=== PATIENT | female | born 1985 | race Two or more races ===

== ENCOUNTER 2016-09-26 13:30 | Outpatient (CLI) | payer MEDICAID ==
[~2016-09-26] VITALS: Ht 162.6 cm; Wt 71.9 kg
[2016-09-26 13:48] VITALS: BP 116/72; PULSE 98; RESP 18; Ht 162.6 cm; Wt 71.9 kg
[2016-09-26] MEDS ORDERED: PRENAT PO (13:51)
--- NOTE | 2016-09-26 20:34 | RADRPT ---
PROCEDURE: US OB biophysical profile. CLINICAL INDICATION: evaluation TECHNIQUE: Multiple sonographic images of the pelvis were obtained. The images were reviewed on a PACS workstation. COMPARISON: No prior studies are available for comparison. FINDINGS: There is a single viable intrauterine gestation. Cardiac activity is present with 142 beats per min cam. There is a vertex presentation. The placenta is anterior. There is no evidence of placental abruption. There is a normal amount of amniotic fluid with an QUEENIE = 14.4 cm. Biophysical profile: movement 2/2 tone 2/2. breathing 2/2 QUEENIE 2/2 Total 01/10 RPTAT: AA . IMPRESSION: Normal biophysical profile. Physician Kyle Date Time Electronically viewed and signed by Physician Kyle on 09/26/2016 20:34 /
--- NOTE | 2016-10-11 22:23 | QN ---
Documentation Comment r/o srom LESLIE QUINTANA MD October 11, 2016 22:23
--- NOTE | 2016-10-18 20:43 | QN ---
Documentation Comment suspected ruptured membrane LESLIE QUINTANA MD October 18, 2016 20:43
== END 2016-09-26 19:01 | disposition home or self-care (01) ==
LOC: L-D 13:30 → OBT 13:30
PROVIDERS: ATTEND Obstetrics & Gynecology
DX: O26.90 Pregnancy related conditions, unspecified, unspecified trimester (principal); Z3A.00 Weeks of gestation of pregnancy not specified
CPT/HCPCS: 76818; 84112; Z7500; G0463

== ENCOUNTER 2016-09-29 11:46 | Inpatient (IN) | payer MEDICAID ==
[~2016-09-29] VITALS: Ht 162.6 cm; Wt 71.7 kg
[~2016-09-29 11:46] MED LIST: PRENAT PO
[2016-09-29 12:08] VITALS: Ht 162.6 cm; Wt 71.7 kg
[2016-09-29 12:09] VITALS: BP 118/64; PULSE 100
[2016-09-29] MEDS ORDERED: ACET325T45 PO (12:10)
[2016-09-29 13:22] LABS: ADD SCAN DIFF NO; BASOPHILS % 0.2 % (0.0-2.0); EOSINOPHILS # 0.1 10^3/ul (0.0-0.5); EOSINOPHILS % 0.4 % (0.0-7.0); HEMATOCRIT 33.7 % (37.0-47.0); HEMOGLOBIN 11.2 g/dl (12.0-16.0); LYMPHOCYTES # 2.2 10^3/ul (0.8-2.9); LYMPHOCYTES % 18.1 % (15.0-51.0); MEAN CORPUSCULAR HEMOGLOBIN 30.4 pg (29.0-33.0); MEAN CORPUSCULAR HGB CONC 33.2 g/dl (32.0-37.0); MEAN CORPUSCULAR VOLUME 91.3 fl (82.0-101.0); MEAN PLATELET VOLUME 9.5 fl (7.4-10.4); MONOCYTES % 7.8 % (0.0-11.0); NEUTROPHIL # 8.9 10^3/ul (1.6-7.5); NEUTROPHILS % 72.2 % (39.0-77.0); PLATELET COUNT 220 10^3/UL (140-415); RED BLOOD COUNT 3.69 10^6/ul (4.20-5.40); RED CELL DISTRIBUTION WIDTH 13.2 % (11.5-14.5); WHITE BLOOD COUNT 12.4 10^3/ul (4.8-10.8)
[2016-09-29 13:39] LABS: ADD UMIC YES; URINE BILIRUBIN (Dip) NEGATIVE (NEGATIVE); URINE BLOOD (Dip) 2+ (NEGATIVE); URINE COLOR YELLOW (YELLOW); URINE GLUCOSE (Dip) NEGATIVE (NEGATIVE); URINE KETONES (Dip) TRACE (NEGATIVE); URINE LEUKOCYTE ESTERASE (Dip) 1+ (NEGATIVE); URINE NITRITE (Dip) NEGATIVE (NEGATIVE); URINE TOTAL PROTEIN (Dip) 1+ (NEGATIVE); URINE UROBILINOGEN (Dip) 1.0 E.U./dL (0.1-1.0)
[2016-09-29 13:52] LABS: BACTERIA,URINE MANY
[2016-09-29] MEDS ORDERED: CEFTRIAXONE 1 GM/50 ML (PMX) 50 ML IVPB ONE (14:30)
[2016-09-29] MEDS ORDERED: LACTATED RINGER'S 1,000 ML IV SCH (15:41)
[2016-09-29] MEDS ORDERED: LACTATED RINGER'S 1,000 ML IV PRN (15:41)
--- NOTE | 2016-09-29 15:51 | RADRPT ---
PROCEDURE: US OB biophysical profile. CLINICAL INDICATION: decreased movements, PTL TECHNIQUE: Multiple sonographic images of the pelvis were obtained. The images were reviewed on a PACS workstation. COMPARISON: No prior studies are available for comparison. FINDINGS: There is a single viable intrauterine gestation. Cardiac activity is present with 130 beats per min [place]. There is a vertex presentation. The placenta is anterior. There is no evidence of placental abruption. There is a normal amount of amniotic fluid with an QUEENIE = 18.0 cm. Biophysical profile: movement 2/2 tone 2/2. breathing 2/2 QUEENIE 2/2 Total 01/10 RPTAT: AA . IMPRESSION: Normal biophysical profile. . .Jose Ramon MD, Date Time Electronically viewed and signed by .Jose Ramon MD, MD on 09/29/2016 15:51 .S/
--- NOTE | 2016-09-29 15:54 | RADRPT ---
PROCEDURE: US OB. CLINICAL INDICATION: Size and dates , PTL TECHNIQUE: Multiple sonographic images of the pelvis and gravid uterus were obtained. The images were reviewed on a PACS workstation. COMPARISON: 09/26/2016 FINDINGS: There is a single viable intrauterine gestation. Cardiac activity is present with 142 beats per min cam. There is a vertex presentation. The placenta is anterior. There is no evidence for an abruption or placenta previa. There is a normal amount of amniotic fluid with an QUEENIE = 18 cm. Measurements were made in order to determine age. The results are as follows: BPD =9.1 cm HC =32.5 cm AC =32.9 cm FL =7.1 cm Estimated gestational age of approximately 36 weeks and 6 days based on ultrasound measurements. Clinical age: 35 weeks and 2 days. The estimated date of delivery is 10/21/2016, based on ultrasound measurements. The EFW = 3023 g, 86%, based on LMP age. RPTAT: AA IMPRESSION: Single viable intrauterine gestation of approximately 36 weeks and 6 days based on ultrasound measu rements. .Jose Ramon MD, Date Time Electronically viewed and signed by .Jose Ramon MD, on 09/29/2016 15:54 .S/
[2016-09-29] MEDS ORDERED: MISOPROSTOL 200 MCG TAB PR PRN (16:00)
[2016-09-29] MEDS ORDERED: OXYTOCIN 30 UNITS/LR 500 ML IV SCH ×2 (16:00)
[2016-09-29] MEDS ORDERED: BUTORPHANOL 2 MG INJ IV PRN (16:00)
[2016-09-29] MEDS ORDERED: IBUPROFEN 600 MG TAB PO PRN (16:00)
[2016-09-29] MEDS ORDERED: OXYTOCIN 30 UNITS/LR 500 ML IV PRN (16:00)
[2016-09-29] MEDS ORDERED: METHYLERGONOVINE 0.2 MG INJ IM PRN (16:00)
[2016-09-29] MEDS ORDERED: LIDOCAINE 1% (MPF) 30 ML INJ INJ PRN (16:00)
[2016-09-29] MEDS ORDERED: CARBOPROST 250 MCG INJ IM PRN (16:00)
[2016-09-29] MEDS ORDERED: TERBUTALINE 1 ML ONE (16:19)
[2016-09-29] MEDS: TERBUTALINE 1 MG/ML INJ SC PRN ×2 (16:25→17:07)
[2016-09-29] MEDS ORDERED: CEFTRIAXONE 1 GM/50 ML (PMX) 50 ML IVPB SCH ×2 (18:00→18:30)
[2016-09-29] MEDS: ACETAMINOPHEN 325 MG TAB PO PRN (18:06)
[2016-09-29] MEDS: SOD CHLORIDE 0.9% 1,000 ML IV SCH (18:07)
--- NOTE | 2016-09-29 18:08 | HP ---
Date/Time of Note Date/Time of Note DATE: 09/29/16 TIME: 18:01 OB - History Hx of Present Free Text/Dictation This is a 31 years old white female 1 para 0 EDC November 01, 2016 admitted to [facility] 35 weeks and 2 day with a chief complaint of having some chills and fever at home patient did not take her temperature at home stating she felt warm after the chief she is being admitted with the tentative diagnosis of possible pyelonephritis and she is being worked up for that diagnosis. Chief Complaint: Chills fever at home suspected pyelonephritis Estimated Due Date: November 01, 2016 : 1 Para: 0 Care: Limited Care Ultrasounds: Normal mid trimester US Obstetrical Complications: None Medical Complications: Genitourinary Past Family/Social History * Past Medical, Surgical, Family and Obstetric Histories reviewed from chart. Rubella: immune RPR/VDRL: Negative GBS Status: Negative HBsAG: Negative OB Admission Exam Vital Signs Vital Signs Vital Signs Date Time Temp Pulse Resp B/P Pulse Ox O2 Delivery O2 Flow Rate FiO2 09/29/16 12:09 98.1 100 118/64 Physical Exam HEENT: WNL Heart: Rhythm Normal Lungs: Clear, Equal Abdomen: WNL Reflexes: Normal Cervical Dilatation: None Station: Ballotable Accelerations: Accelerations Present Decelerations: No Decelerations Varibility: Absent Last 72 hours Lab Results CBC & BMP 09/29/16 12:47 OB Assessment/Plan Reason for admission: IUP - Plan: Other (Workup and treatment for suspected pyelonephritis) LESLIE QUINTANA MD Sep 29, 2016 18:08
[2016-09-29] MEDS: GENTAMICIN 80 MG/NS (PMX) 50 ML IVPB SCH (20:18)
[2016-09-30] MEDS: SOD CHLORIDE 0.9% 1,000 ML IV SCH ×4 (00:52→17:40)
[2016-09-30] MEDS: GENTAMICIN 80 MG/NS (PMX) 50 ML IVPB SCH (04:05)
[2016-09-30 07:17] LABS: ADD SCAN DIFF NO
[2016-09-30 07:20] LABS: BASOPHILS % 0.2 % (0.0-2.0); EOSINOPHILS # 0.1 10^3/ul (0.0-0.5); EOSINOPHILS % 0.4 % (0.0-7.0); HEMATOCRIT 31.5 % (37.0-47.0); HEMOGLOBIN 10.4 g/dl (12.0-16.0); LYMPHOCYTES # 2.5 10^3/ul (0.8-2.9); LYMPHOCYTES % 19.6 % (15.0-51.0); MEAN CORPUSCULAR HEMOGLOBIN 30.3 pg (29.0-33.0); MEAN CORPUSCULAR VOLUME 91.8 fl (82.0-101.0); MEAN PLATELET VOLUME 9.7 fl (7.4-10.4); MONOCYTE # 0.8 10^3/ul (0.3-0.9); NEUTROPHIL # 9.2 10^3/ul (1.6-7.5); NEUTROPHILS % 72.5 % (39.0-77.0); PLATELET COUNT 204 10^3/UL (140-415); RED BLOOD COUNT 3.43 10^6/ul (4.20-5.40); RED CELL DISTRIBUTION WIDTH 13.3 % (11.5-14.5); WHITE BLOOD COUNT 12.7 10^3/ul (4.8-10.8)
[2016-09-30] MEDS: ACETAMINOPHEN 325 MG TAB PO PRN ×3 (07:31→23:52)
[2016-09-30] MEDS ORDERED: MULTIVIT/MIN/FOLATE/IRON/PREN TAB PO SCH (09:00)
[2016-09-30] MEDS ORDERED: GENTAMICIN 120 MG/NS (PMX) 100 ML IVPB SCH ×3 (11:30→22:00)
[2016-09-30] MEDS: PIPER-TAZO 3.375 GM IV (PMX) 100 ML IVPB SCH ×3 (14:39→23:52)
[2016-09-30] MEDS ORDERED: CEFTRIAXONE 1 GM/50 ML (PMX) 50 ML IVPB SCH (16:00)
[2016-10-01] MEDS ORDERED: IBUPROFEN 600 MG TAB PO PRN (00:30)
[2016-10-01] MEDS ORDERED: METHYLERGONOVINE 0.2 MG INJ IM PRN (00:30)
[2016-10-01] MEDS ORDERED: BUTORPHANOL 2 MG INJ IV PRN (00:30)
[2016-10-01] MEDS ORDERED: CARBOPROST 250 MCG INJ IM PRN (00:30)
[2016-10-01] MEDS ORDERED: LIDOCAINE 1% (MPF) 30 ML INJ INJ PRN (00:30)
[2016-10-01] MEDS ORDERED: OXYTOCIN 30 UNITS/LR 500 ML IV SCH ×2 (00:30→11:00)
[2016-10-01] MEDS ORDERED: MISOPROSTOL 200 MCG TAB PR PRN (00:30)
[2016-10-01] MEDS ORDERED: OXYTOCIN 30 UNITS/LR 500 ML IV PRN (00:30)
[2016-10-01] MEDS: BUTORPHANOL 2 MG INJ IV PRN ×2 (01:51→03:49)
[2016-10-01] MEDS: LACTATED RINGER'S 1,000 ML IV PRN ×2 (01:52→03:55)
[2016-10-01 01:53] LABS: INR 0.91; PROTIME 12.3 Sec (12.2-14.2)
[2016-10-01 01:54] LABS: PARTIAL THROMBOPLASTIN TIME 24.8 Sec (25.0-35.0)
[2016-10-01] MEDS ORDERED: FENTAnyl 2MCG/ML-ROPIV 0.2% 100 ML ONE (05:22)
[2016-10-01] MEDS ORDERED: NALOXONE (0.4 MG/ML) INJ IV PRN (06:00)
[2016-10-01] MEDS ORDERED: HYDROmorphONE 1 MG/ML SYG IV PRN ×2 (06:00)
[2016-10-01] MEDS ORDERED: ONDANSETRON 4 MG INJ IV PRN ×2 (06:00→14:30)
[2016-10-01] MEDS ORDERED: DIPHENHYDRAMINE 50 MG INJ IV PRN (06:00)
[2016-10-01] MEDS ORDERED: FENTAnyl 2MCG/ML-ROPIV 0.2% 100 ML BAG EPI SCH (06:00)
[2016-10-01] MEDS: AMPICILLIN 2 GM/NS (PMX) 100 ML IVPB SCH ×2 (06:26→12:53)
[2016-10-01] MEDS: ACETAMINOPHEN 325 MG TAB PO PRN ×2 (06:33→12:21)
[2016-10-01] MEDS ORDERED: GENTAMICIN 120 MG/NS (PMX) 100 ML IVPB SCH ×2 (09:00→14:00)
--- NOTE | 2016-10-01 11:10 | QN ---
Documentation Comment This is a 31 years old white female 1 para 0 with questionable EDC of October 17 on her record and November 01 by her LMP which originally admitted to the hospital due to the chills and fever suspected pyelonephritis at first she was treated with Rocephin then followed with ampicillin and gentamicin, she went into active labor in the antepartum unit and transferred to labor and delivery room . Patient spiked temperature to 101.3 preliminary blood and urine culture are negative, final result not available yet LESLIE QUINTANA MD Oct 01, 2016 11:09
--- NOTE | 2016-10-01 11:15 | LDN ---
Date/Time of Note Date/Time of Note DATE: 10/01/16 TIME: 11:10 Delivery Summary Normal spontaneous vaginal delivery of a baby boy from OA position shoulders delivered without any difficulties rest of the baby's body follow cord was clamped after stopped pulsation placenta spontaneous expulsion inspected complete culture and sensitivity for aerobic and anaerobic from placenta also placenta sent to the pathology Placenta Delivered: Spontaneously Meconium: none Episiotomy: No Perineal laceration: 1 Laceration repair: First-degree perineal laceration and right periurethral laceration both with with 3-0 chromic catgut and 4-0 chromic catgut Anesthesia type: Epidural Sponge & Needle done & correct: Yes All needle counts correct: Yes Any foreign bodies felt in the: No Problems: Delivery Information Sex Sex: male Apgars 1 Minute: 8 5 Minute: 9 Suctioning Nose & mouth suctioned at beatrice: Yes Delee suction performed: No Umbilical Cord Umbilical cord with: 3 Vessels Cord Blood was obtained: Yes LESLIE QUINTANA MD Oct 01, 2016 11:15
[2016-10-01 14:30] VITALS: BP 96/57; PULSE 99; RESP 16
[2016-10-01] MEDS ORDERED: DIBUCAINE 1% 30 GM OINT PR PRN (14:30)
[2016-10-01] MEDS ORDERED: ACETAMINOPHEN 325 MG TAB PO PRN (14:30)
[2016-10-01] MEDS ORDERED: LANOLIN 7 GM TUBE TOP PRN (14:30)
[2016-10-01] MEDS ORDERED: WITCH HAZEL/GLYCERIN PAD PR PRN (14:30)
[2016-10-01] MEDS ORDERED: OXYCODONE/ASPIRIN (4.88/325) TAB PO PRN ×2 (14:30)
[2016-10-01] MEDS ORDERED: BENZOCAINE 20% 56 ML SPRAY TOP PRN (14:30)
[2016-10-01] MEDS ORDERED: IMIPENEM/CILASTATIN 1,000 MG in SOD CHLORIDE 0.9% 250 ML IVPB SCH (14:30)
[2016-10-01] MEDS ORDERED: ACETAMINOPHEN/CODEINE #3 TAB PO PRN ×2 (14:30)
[2016-10-01] MEDS: OXYTOCIN 30 UNITS/LR 500 ML IV SCH ×2 (14:57→21:12)
[2016-10-01 15:02] LABS: ADD SCAN DIFF NO
[2016-10-01 15:14] LABS: HEMATOCRIT 30.4 % (37.0-47.0); HEMOGLOBIN 10.3 g/dl (12.0-16.0); MEAN CORPUSCULAR HEMOGLOBIN 30.9 pg (29.0-33.0); MEAN CORPUSCULAR HGB CONC 33.9 g/dl (32.0-37.0); MEAN CORPUSCULAR VOLUME 91.3 fl (82.0-101.0); MEAN PLATELET VOLUME 9.9 fl (7.4-10.4); PLATELET COUNT 198 10^3/UL (140-415); RED BLOOD COUNT 3.33 10^6/ul (4.20-5.40); RED CELL DISTRIBUTION WIDTH 13.4 % (11.5-14.5); WHITE BLOOD COUNT 14.4 10^3/ul (4.8-10.8)
--- NOTE | 2016-10-01 16:07 | RADRPT ---
PROCEDURE: Retroperitoneal ultrasound. CLINICAL INDICATION: Fever, flank pain TECHNIQUE: Cabrales scale and color doppler ultrasound images of the retroperitoneum, kidneys, urinary bladder COMPARISON: No prior studies are available for comparison. FINDINGS: Right kidney 11.9 cm in length. Right renal cortical thickness is preserved. Left kidney 11.6 cm in length. Left renal cortical thickness is preserved. Normal echogenicity. No hydronephrosis. No renal calculi. No focal lesions. Bladder: No focal lesions. IMPRESSION: Normal examination of the kidneys and urinary bladder. RPTAT: AADD .Gilles Day MD, MD Date Time Electronically viewed and signed by .Gilles Day MD, on 10/01/2016 16:07 .B/
[2016-10-01] MEDS: IBUPROFEN 600 MG TAB PO SCH ×2 (17:09→23:23)
[2016-10-01] MEDS: IMIPENEM/CILASTATIN 1,000 MG in SOD CHLORIDE 0.9% 250 ML IVPB SCH (17:25)
--- NOTE | 2016-10-01 19:21 | CONS ---
Date/Time of Note Date/Time of Note DATE: 10/01/16 TIME: 19:01 Assessment/Plan Assessment/Plan Chief Complaint/Hosp Course ID PROGRESS NOTE ABX DAY #3 =>Primaxin #1 s/p Ceftriaxone + Gent IV s/p Amoxicillin 24H INTERVAL SUMMARY * I presented to the new mother's room 302 where she is found holding her son with Father present. She is a beautiful, healthy appearing 31 yo F 10/01 -> Normal spontaneous vaginal delivery of a baby boy. She currently denies fevers, chills, N/V/D, flank pain/ABD pain. She did have some dysuria today after delivery, not sure if due to repair of vaginal tissue vs urethral source, denies current dysuria. * She was admitted on 09/29 from home w/fevers, tachycardia, UTI per UA => presumptive acute pyelonephritis -> referred to Dr. Del Rosario ID consult today post delivery for ABX recommendations with fevers persisting on Ceftriaxone + Gent. Dr. Del Rosario recommended start Primaxin and DC Ceftriaxone/Gent during phone call discussion with Dr. Singh earlier today this morning about 1-hr . * Urine cx was unremarkable growing normal vaginal eden contaminant. URINE CULTURE Final LACTOBACILLUS SPECIES >100,000 CFU/ml * Renal/Bladder US 10/01 showed no abnormalities, basically unremarkable. Normal examination of the kidneys and urinary bladder. * Placenta cx sent by Dr. iSngh today and pending. PHYSICAL EXAMINATION: GENERAL: 32 yo F, HEENT: Unremarkable NECK: Supple, trachea midline. CHEST: Rise symmetrical, HEART: Pulse RRR ABDOMEN: Soft, distended post , : Post vag discharge, wearing pads EXTREMITIES: Warm, dry, no edema ID ASSESSMENT 31 yo F presented 09/29 w/fevers/chills at home on 09/29 admit with: 1. day #10/01, 1 para 1 -> Normal spontaneous vaginal delivery of a baby boy with: 2. SIRS vs sepsis w/fevers, tachycardia HR 100, Leukocytosis WBC 14.3 -> DDx UTI vs Chorioamnionitis 3. Urine Cx = growing normal vaginal eden contaminant. URINE CULTURE Final LACTOBACILLUS SPECIES >100,000 CFU/ml 4. Normal Ultrasound 10/01 examination of the kidneys and urinary bladder. INVASIVES: PIV, ABX ALLERGY: KNDA CURRENT ABX: #3 =>Primaxin #1 s/p Ceftriaxone + Gent IV ID RECOMMENDATIONS 1. Overall she is improving on current ABX -- await result of placenta cultures 2. Continue Primaxin *Thank you, further recs per Dr. Del Rosario's note dictation which is pending medical officer. . Problems: Consultation Date/Type/Reason Admit Date/Time Sep 29, 2016 at 13:15 Initial Consult Date Exam/Review of Systems Vital Signs Vitals Vital Signs Date Time Temp Pulse Resp B/P Pulse Ox O2 Delivery O2 Flow Rate FiO2 10/01/16 14:30 100.7 99 16 96/57 Room Air Intake and Output 09/30/16 09/30/16 10/01/16 15:00 23:00 07:00 Intake Total 1200 ml 2055 ml 1225 ml Output Total 900 ml 1000 ml Balance 300 ml 1055 ml 1225 ml Results Result Diagram: 10/01/16 1445 Results 24 hrs Laboratory Tests Test 09/30/16 23:15 10/01/16 01:27 10/01/16 14:45 Membranes Rupture POSITIVE H Prothrombin Time 12.3 Prothrombin Time Ratio 1.0 INR International Normalized Ratio 0.91 Activated Partial Thromboplast Time 24.8 L Rapid Plasma Reagin NONREACTIVE Hepatitis B Surface Antigen NEGATIVE White Blood Count 14.4 H Red Blood Count 3.33 L Hemoglobin 10.3 L Hematocrit 30.4 L Mean Corpuscular Volume 91.3 Mean Corpuscular Hemoglobin 30.9 Mean Corpuscular Hemoglobin Concent 33.9 Red Cell Distribution Width 13.4 Platelet Count 198 Mean Platelet Volume 9.9 Neutrophils % Lymphocytes % Monocytes % Neutrophils # Lymphocytes # Monocytes # Medications Medications Current Medications Oxytocin/Lactated Ringer's 500 ml @ 125 mls/hr Q4H IV Last administered on 14:57; Admin Dose 125 MLS/HR; Start 10/01/16 at 14:22; Stop 10/01/16 at 22:21 Ibuprofen (Motrin) 600 mg Q6 PO Last administered on 10/01/16 17:09; Admin Dose 600 MG; Start 10/01/16 at 18:00 Acetaminophen (Tylenol Tab) 650 mg Q4H PRN PO PAIN LEVEL 1-5 Last administered on 10/01/16 18:18; Admin Dose 650 MG; Start 10/01/16 at 14:30 Acetaminophen/ Codeine Phosphate (Tylenol No.3) 1 tab Q4H PRN PO PAIN LEVEL 1-5 ; Start 10/01/16 at 14:30 Acetaminophen/ Codeine Phosphate (Tylenol No.3) 2 tab Q4H PRN PO PAIN LEVEL 6- 10; Start 10/01/16 at 14:30 Oxycodone/Aspirin (Percodan) 1 tab Q3H PRN PO PAIN LEVEL 1-5; Start 10/01/16 at 14:30 Oxycodone/Aspirin (Percodan) 2 tab Q3H PRN PO PAIN LEVEL 6-10; Start 10/01/16 at 14:30 Ondansetron HCl (Zofran Inj) 4 mg Q6H PRN IV NAUSEA AND/OR VOMITING; Start at 14:30 Senna/Docusate Sodium (Senokot-S) 1 tab BID PO ; Start 10/01/16 at 21:00 Measles/Mumps/ Rubella Vaccine Live 0.5 ml 0.5 ml ONCE ONCE SC* ; Start 10/03/16 at 09:00; Stop 10/03/16 at 09:01 Imipenem/ Cilastatin Sodium/ Sodium Chloride (Primaxin/NS) 250 ml @ 166.667 mls /hr Q6 IVPB Last administered on 10/01/16t 17:25; Admin Dose 166.667 MLS/HR; Start 10/01/16 at 17:00 LUICO CRUZ NP Oct 01, 2016 19:11
[2016-10-01 19:40] VITALS: BP 92/54; PULSE 100; RESP 20
[2016-10-01] MEDS: SENNA/DOCUSATE NA (8.6MG/50MG) TAB PO SCH (21:13)
[2016-10-01 22:07] LABS: LYMPHOCYTES # 2.4 10^3/ul (0.8-2.9); MONOCYTE # 0.7 10^3/ul (0.3-0.9); NEUTROPHIL # 9.9 10^3/ul (1.6-7.5)
--- NOTE | 2016-10-01 23:54 | CONS ---
DATE OF ADMISSION: 09/29/2016 DATE OF CONSULTATION: 10/01/2016 TYPE OF CONSULTATION: Infectious disease. REASON FOR CONSULTATION: Antibiotic management. HISTORY OF PRESENT ILLNESS: Cyndy Gr is a very pleasant 31-year-old female, 1, who was admitted 09/29/2016 to [facility] with 35-week . She had chief complaints of chi lls and fever at home. She was admitted with a diagnosis of pyelonephritis and was worked up for th at diagnosis. She had chills and fever at home. HOSPITAL COURSE: The patient underwent labor and delivery on the morning. She had normal spon taneous vaginal delivery from OA position. Baby is healthy at this point. There was pulsation of p lacenta, spontaneous expulsion. Complete culture and sensitivities were done on the placenta and it was sent for evaluation. Blood cultures so far are negative. Urine culture was positive for lacto bacillus. A renal ultrasound was done, which showed normal examination of the kidneys and the urina ry bladder. White count on admission was 12.4. Today it is 14.4, H and H 10.3 and 30.4, platelet c ount 198,000. Urine: 1+ leukocyte esterase, 25 to 50 white cells per high powered field. The hao ent was started on imipenem 500 mg q.8h., gentamicin, and ampicillin, so she was started on 3 differ ent antibiotics. PAST MEDICAL HISTORY: Operations as outlined. FAMILY HISTORY: Noncontributory. SOCIAL HISTORY: As noted, she does not smoke, drink, or abuse drugs. ALLERGIES: NONE TO PENICILLIN, SULFA, OR FOODS. MEDICATIONS: GENERAL: Per chart. REVIEW OF SYSTEMS: As per HPI. PHYSICAL EXAMINATION: GENERAL: The patient is a well-developed, well-nourished female who is alert, responsive, in no acu te distress. VITAL SIGNS: Stable. She is afebrile. SKIN: Without generalized rash. HEENT: Within normal limits. NECK: Supple. LYMPH NODES: None palpable. LUNGS: Clear to P and A. HEART: Without murmur or gallop. ABDOMEN: Soft, nontender without organosplenomegaly or masses. EXTREMITIES: Without cyanosis, clubbing, or edema. RECTAL AND GENITAL: Deferred. NEUROLOGIC: No focal neurological abnormalities. IMPRESSION AND PLAN: The patient may have had an infected placenta. She may have had pyelonephriti s, but at this point, the baby is healthy, mother is healthy, and she is on triple antibiotics with ampicillin, imipenem, and gentamicin. Will await the culture reports. I will dictate my findings t o Dr. Quintana. Dictated By: JS CLAIRE MD, JD/NTS Conf#: [id number] DID#: [id number] CC: LESLIE QUINTANA MD;*EndCC*
[2016-10-02] MEDS: IMIPENEM/CILASTATIN 1,000 MG in SOD CHLORIDE 0.9% 250 ML IVPB SCH ×4 (00:23→17:22)
[2016-10-02 03:30] VITALS: BP 89/53; PULSE 81
[2016-10-02] MEDS: IBUPROFEN 600 MG TAB PO SCH ×4 (05:29→23:20)
[2016-10-02 07:30] VITALS: BP 93/53; PULSE 84; RESP 19
[2016-10-02 07:38] LABS: ADD SCAN DIFF NO
[2016-10-02 07:41] LABS: HEMATOCRIT 30.4 % (37.0-47.0); HEMOGLOBIN 10.2 g/dl (12.0-16.0); MEAN CORPUSCULAR HEMOGLOBIN 30.4 pg (29.0-33.0); MEAN CORPUSCULAR HGB CONC 33.6 g/dl (32.0-37.0); MEAN CORPUSCULAR VOLUME 90.7 fl (82.0-101.0); MEAN PLATELET VOLUME 9.8 fl (7.4-10.4); PLATELET COUNT 185 10^3/UL (140-415); RED BLOOD COUNT 3.35 10^6/ul (4.20-5.40); RED CELL DISTRIBUTION WIDTH 13.4 % (11.5-14.5); WHITE BLOOD COUNT 9.6 10^3/ul (4.8-10.8)
[2016-10-02] MEDS: SENNA/DOCUSATE NA (8.6MG/50MG) TAB PO SCH ×2 (08:45→20:59)
[2016-10-02] MEDS: LACTATED RINGER'S 1,000 ML IV SCH ×2 (08:51→17:00)
[2016-10-02 10:36] LABS: EOSINOPHILS # 0.2 10^3/ul (0.0-0.5); LYMPHOCYTES # 2.3 10^3/ul (0.8-2.9); MYELOCYTES # 0.1; PLATELET ESTIMATE PLT APPEAR ADEQUATE
--- NOTE | 2016-10-02 12:59 | CONS ---
Date/Time of Note Date/Time of Note DATE: 10/02/16 TIME: 12:55 Assessment/Plan Assessment/Plan Chief Complaint/Hosp Course ID PROGRESS NOTE ABX DAY #4 =>Primaxin #2 s/p Ceftriaxone + Gent IV-> DC 10/01 s/p Amoxicillin 24H INTERVAL SUMMARY * Much improved on Primaxin -- afebrile, WBC normalized, no evidence of sepsis. * Maternal and Placenta cultures both => TISSUE (BIOPSY) CULTURE Preliminary No growth after 1 day * Urine cx was unremarkable growing normal vaginal eden contaminant. URINE CULTURE Final LACTOBACILLUS SPECIES >100,000 CFU/ml * Renal/Bladder US 10/01 showed no abnormalities, basically unremarkable. Normal examination of the kidneys and urinary bladder. * Placenta cx sent by Dr. Singh today and pending. PHYSICAL EXAMINATION: GENERAL: 32 yo F, HEENT: Unremarkable NECK: Supple, trachea midline. CHEST: Rise symmetrical, HEART: Pulse RRR ABDOMEN: Soft, distended post , : Post vag discharge, wearing pads EXTREMITIES: Warm, dry, no edema ID ASSESSMENT 31 yo F presented 09/29 w/fevers/chills at home on 09/29 admit with: 1. day #10/01, 1 para 1 -> Normal spontaneous vaginal delivery of a baby boy with: 2. SIRS vs sepsis w/fevers, tachycardia HR 100, Leukocytosis WBC 14.3 -> DDx UTI vs Chorioamnionitis 3. Urine Cx = growing normal vaginal eden contaminant. URINE CULTURE Final LACTOBACILLUS SPECIES >100,000 CFU/ml 4. Normal Ultrasound 10/01 examination of the kidneys and urinary bladder. INVASIVES: PIV, ABX ALLERGY: KNDA CURRENT ABX: ABX DAY #4 =>Primaxin #2 s/p Ceftriaxone + Gent IV ID RECOMMENDATIONS 1. Overall she has improved and back to baseline, fevers, leukocytosis resolved , NO EVIDENCE of current sepsis, BCx & urine (-) -- await result of placenta cultures 2. Anticipate DC home OFF PRIMAXIN if placenta cx are negative. * Above recommendations discussed with the patient who expresses understanding/ agreement/gratitude for ID care. . Problems: Consultation Date/Type/Reason Admit Date/Time Sep 29, 2016 at 13:15 Exam/Review of Systems Vital Signs Vitals Vital Signs Date Time Temp Pulse Resp B/P Pulse Ox O2 Delivery O2 Flow Rate FiO2 4/30/17 07:30 97.8 84 19 93/53 Room Air Intake and Output 10/01/16 10/01/16 10/02/16 15:00 23:00 07:00 Intake Total 1220 ml 625 ml 875 ml Output Total 1050 ml Balance 170 ml 625 ml 875 ml Results Result Diagram: 10/02/16 0624 Results 24 hrs Laboratory Tests Test 10/01/16 14:45 10/02/16 06:24 White Blood Count 14.4 H 9.6 # Red Blood Count 3.33 L 3.35 L Hemoglobin 10.3 L 10.2 L Hematocrit 30.4 L 30.4 L Mean Corpuscular Volume 91.3 90.7 Mean Corpuscular Hemoglobin 30.9 30.4 Mean Corpuscular Hemoglobin Concent 33.9 33.6 Red Cell Distribution Width 13.4 13.4 Platelet Count 198 185 Mean Platelet Volume 9.9 9.8 Neutrophils % 69.0 63.0 Band Neutrophils % 4.0 Lymphocytes % 17.0 24.0 Reactive Lymphocytes % 5.0 Monocytes % 5.0 10.0 Neutrophils # 9.9 H 6.0 Lymphocytes # 2.4 2.3 Monocytes # 0.7 1.0 H Eosinophils % 2.0 Myelocytes % 1.0 H Eosinophils # 0.2 Myelocytes # 0.1 Platelet Estimate PLT APPEAR ADEQUATE Medications Medications Current Medications Ibuprofen (Motrin) 600 mg Q6 PO Last administered on 10/02/16 11:35; Admin Dose 600 MG; Start 10/01/16 at 18:00 Acetaminophen (Tylenol Tab) 650 mg Q4H PRN PO PAIN LEVEL 1-5 Last administered on 10/01/16 18:18; Admin Dose 650 MG; Start 10/01/16 at 14:30 Acetaminophen/ Codeine Phosphate (Tylenol No.3) 1 tab Q4H PRN PO PAIN LEVEL 1-5 ; Start 10/01/16 at 14:30 Acetaminophen/ Codeine Phosphate (Tylenol No.3) 2 tab Q4H PRN PO PAIN LEVEL 6- 10; Start 10/01/16 at 14:30 Oxycodone/Aspirin (Percodan) 1 tab Q3H PRN PO PAIN LEVEL 1-5; Start 10/01/16 at 14:30 Oxycodone/Aspirin (Percodan) 2 tab Q3H PRN PO PAIN LEVEL 6-10; Start 10/01/16 at 14:30 Ondansetron HCl (Zofran Inj) 4 mg Q6H PRN IV NAUSEA AND/OR VOMITING; Start at 14:30 Senna/Docusate Sodium (Senokot-S) 1 tab BID PO Last administered on 10/02/16 08:45; Admin Dose 1 TAB; Start 10/01/16 at 21:00 Measles/Mumps/ Rubella Vaccine Live 0.5 ml 0.5 ml ONCE ONCE SC* ; Start 10/03/16 at 09:00; Stop 10/03/16 at 09:01 Imipenem/ Cilastatin Sodium 1000 mg/Sodium Chloride 250 ml @ 166.667 mls/hr Q6 IVPB Last administered on 10/02/16 11:35; Admin Dose 166.667 MLS/HR; Start at 17:00 Lactated Ringer's (Lr) 1,000 ml @ 125 mls/hr Q8H IV Last administered on 08:51; Admin Dose 125 MLS/HR; Start 10/02/16 at 09:00 LUCIO CRUZ NP Oct 02, 2016 12:59
--- NOTE | 2016-10-02 15:45 | PN ---
Date/Time of Note Date/Time of Note DATE: 10/02/16 TIME: 15:41 OB Subjective Subjective Subjective Post normal vaginal delivery day 1 Afebrile as of midnight last night no complaint of flank pain no sign of urinary frequency abdomen soft uterus firm suprapubic area nontender lochia moderate' urine culture was positive for lactobacillus over 100,000 patient currently on Primaxin responded well to the treatment white WBC down from 14,000 -9600, culture result from the placenta and membranes not available extremity normal. Laboratory Tests Test 10/02/16 06:24 White Blood Count 9.610^3/ul Red Blood Count 3.3510^6/ul Hemoglobin 10.2g/dl Hematocrit 30.4% Mean Corpuscular Volume 90.7fl Mean Corpuscular Hemoglobin 30.4pg Mean Corpuscular Hemoglobin Concent 33.6g/dl Red Cell Distribution Width 13.4% Platelet Count 52934^3/UL Mean Platelet Volume 9.8fl Neutrophils % 63.0% Lymphocytes % 24.0% Monocytes % 10.0% Eosinophils % 2.0% Myelocytes % 1.0% Neutrophils # 6.010^3/ul Lymphocytes # 2.310^3/ul Monocytes # 1.010^3/ul Eosinophils # 0.210^3/ul Myelocytes # 0.1 Platelet Estimate PLT APPEAR ADEQUATE Current Medications Medications (Trade) Dose Ordered Sig/[place] Route PRN Reason Start Time Stop Time Status Last Admin Dose Admin Ceftriaxone Sodium 50 ml @ 100 mls/hr ONCE ONCE IVPB 09/29/16 14:30 09/29/16 14:59 DC 09/29/16 16:12 Lactated Ringer's (Lr) 1,000 ml @ 125 mls/hr Q8H IV 09/29/16 15:41 09/29/16 17:05 DC 09/29/16 16:29 Butorphanol Tartrate (Stadol) 2 mg Q2H PRN IV PAIN 09/29/16 16:00 09/29/16 17:05 DC Lidocaine 30 ml 30 ml ONCE PRN INJ EPISIOTOMY/TEARING 09/29/16 16:00 09/29/16 17:05 DC Oxytocin/Lactated Ringer's 500 ml @ 125 mls/hr ONCE -MAY REPEAT X1 IV 09/29/16 16:00 09/29/16 17:05 DC Oxytocin/Lactated Ringer's 500 ml @ 125 mls/hr ONCE IV 09/29/16 16:00 09/29/16 17:06 DC Ibuprofen 600 mg 600 mg ONCE PRN PO Mild Pain (Pain Score 1-3) 09/29/16 16:00 09/29/16 17:06 DC Lactated Ringer's 1,000 ml @ 2,000 mls/hr Q30M PRN IV PRE-EPIDURAL BOLUS 09/29/16 15:41 09/29/16 17:06 DC Oxytocin/Lactated Ringer's 500 ml @ 0 mls/hr ONCE PRN IV For Hemorrhage Management 09/29/16 16:00 09/29/16 17:06 DC Methylergonovine Maleate (Methergine) 0.2 mg ONCE PRN IM VAGINAL BLEEDING 09/29/16 16:00 09/29/16 17:06 DC Carboprost Tromethamine (Hemabate) 250 mcg ONCE PRN IM VAGINAL BLEEDING 09/29/16 16:00 09/29/16 17:06 DC Misoprostol (Cytotec) 1,000 mcg ONCE PRN AK VAGINAL BLEEDING 09/29/16 16:00 09/29/16 17:06 DC Terbutaline Sulfate 0.25 mg 0.25 mg PRN PRN SC PAIN 09/29/16 16:30 09/29/16 17:47 DC 09/29/16 17:07 Terbutaline Sulfate 1 ml @ ud STK-MED ONCE .ROUTE 09/29/16 16:19 09/29/16 16:20 DC Sodium Chloride (NS) 1,000 ml @ 125 mls/hr Q8H IV 09/29/16 16:58 10/01/16 01:43 DC 09/30/16 17:40 Prenat Multivit/ Field Nurse Case Manager/Iron/Folic Ac ( S) 1 tab DAILY PO 09/30/16 09:00 10/01/16 01:43 DC 09/30/16 08:44 Acetaminophen 650 mg 650 mg Q4H PRN PO PAIN AND OR ELEVATED TEMP 09/29/16 17:00 10/01/16 01:43 DC 09/30/16 23:52 Gentamicin Sulfate 50 ml @ 104 mls/hr Q8H IVPB 09/29/16 19:30 09/30/16 10:23 DC 09/30/16 04:05 Ceftriaxone Sodium 50 ml @ 100 mls/hr Q24H IVPB 09/29/16 18:00 09/29/16 18:04 DC Ceftriaxone Sodium 50 ml @ 100 mls/hr Q24H IVPB 09/29/16 18:30 09/29/16 18:30 DC Ceftriaxone Sodium 50 ml @ 100 mls/hr Q24H IVPB 09/30/16 16:00 09/30/16 16:00 DC Gentamicin Sulfate 100 ml @ 200 mls/hr Q24H IVPB 09/30/16 11:30 09/30/16 11:30 DC Gentamicin Sulfate 100 ml @ 200 mls/hr Q8H IVPB 09/30/16 12:30 09/30/16 21:16 DC 09/30/16 11:25 Piperacillin Sod/ Tazobactam Sod 100 ml @ 200 mls/hr Q6 IVPB 09/30/16 14:00 10/01/16 01:43 DC 09/30/16 23:52 Gentamicin Sulfate (Gentamicin) 100 ml @ 200 mls/hr Q8H IVPB 09/30/16 22:00 10/01/16 01:43 DC 09/30/16 22:29 Butorphanol Tartrate (Stadol) 1 mg Q2H PRN IV PAIN 10/01/16 00:30 10/01/16 14:25 DC Butorphanol Tartrate (Stadol) 2 mg Q2H PRN IV PAIN 10/01/16 00:30 10/01/16 14:25 DC 10/01/16 03:49 Lidocaine 30 ml 30 ml ONCE PRN INJ EPISIOTOMY/TEARING 10/01/16 00:30 10/01/16 14:25 DC Oxytocin/Lactated Ringer's 500 ml @ 125 mls/hr ONCE -MAY REPEAT X1 IV 10/01/16 00:30 10/01/16 14:25 DC 10/01/16 10:44 Ibuprofen 600 mg 600 mg ONCE PRN PO Mild Pain (Pain Score 1-3) 10/01/16 00:30 10/01/16 14:25 DC Lactated Ringer's 1,000 ml @ 2,000 mls/hr Q30M PRN IV PRE-EPIDURAL BOLUS 10/01/16 00:30 10/01/16 14:30 DC 10/01/16 03:55 Oxytocin/Lactated Ringer's 500 ml @ 0 mls/hr ONCE PRN IV For Hemorrhage Management 10/01/16 00:30 10/01/16 14:30 DC Methylergonovine Maleate (Methergine) 0.2 mg ONCE PRN IM VAGINAL BLEEDING 10/01/16 00:30 10/01/16 14:30 DC Carboprost Tromethamine (Hemabate) 250 mcg ONCE PRN IM VAGINAL BLEEDING 10/01/16 00:30 10/01/16 14:30 DC Misoprostol 1000 mcg 1,000 mcg ONCE PRN [place] VAGINAL BLEEDING 10/01/16 00:30 10/01/16 14:30 DC Ampicillin (Ampicillin 2 Gm/ NS (Pmx)) 100 ml @ 100 mls/hr Q6 IVPB 10/01/16 06:00 10/01/16 13:16 DC 10/01/16 12:53 Acetaminophen 650 mg 650 mg Q6H PRN PO PAIN AND OR ELEVATED TEMP 10/01/16 02:00 10/01/16 14:25 DC 10/01/16 12:21 Fentanyl/ Ropivacaine 100 ml @ STK-MED ONCE .ROUTE 10/01/16 05:22 10/01/16 05:23 DC Naloxone HCl (Narcan) 0.1 mg Q2M PRN IV FOR RESP RATE 8 OR LESS 10/01/16 06:00 10/01/16 14:30 DC Hydromorphone HCl (Dilaudid) 0.2 mg Q3H PRN IV PAIN LEVEL 1-5 10/01/16 06:00 10/01/16 14:25 DC Hydromorphone HCl (Dilaudid) 0.4 mg Q3H PRN IV PAIN LEVEL 6-10 10/01/16 06:00 10/01/16 14:25 DC Diphenhydramine HCl (Benadryl) 25 mg Q6H PRN IV ITCHING 10/01/16 06:00 10/01/16 14:25 DC Ondansetron HCl (Zofran Inj) 4 mg Q6H PRN IV NAUSEA AND/OR VOMITING 10/01/16 06:00 10/01/16 14:25 DC Fentanyl/ Ropivacaine 100 ml 100 ml EPIDURAL INFUSION EPI 10/01/16 06:00 10/01/16 14:25 DC Gentamicin Sulfate 100 ml @ 200 mls/hr Q24H IVPB 10/01/16 09:00 10/01/16 09:00 DC 10/01/16 08:15 Gentamicin Sulfate 100 ml @ 200 mls/hr Q8 IVPB 10/01/16 14:00 10/01/16 14:00 DC Oxytocin/Lactated Ringer's 500 ml @ 125 mls/hr Q4H IV 10/01/16 11:00 10/01/16 14:25 DC 10/01/16 12:32 Imipenem/ Cilastatin Sodium 1000 mg/Sodium Chloride 250 ml @ 166.667 mls/hr Q6 IVPB 10/01/16 14:30 10/01/16 14:30 DC Oxytocin/Lactated Ringer's 500 ml @ 125 mls/hr Q4H IV 10/01/16 14:22 10/01/16 22:21 DC 10/01/16 21:12 Ibuprofen (Motrin) 600 mg Q6 PO 10/01/16 18:00 10/02/16 11:35 Acetaminophen (Tylenol Tab) 650 mg Q4H PRN PO PAIN LEVEL 1-5 10/01/16 14:30 10/01/16 18:18 Acetaminophen/ Codeine Phosphate (Tylenol No.3) 1 tab Q4H PRN PO PAIN LEVEL 1-5 10/01/16 14:30 Acetaminophen/ Codeine Phosphate (Tylenol No.3) 2 tab Q4H PRN PO PAIN LEVEL 6-10 10/01/16 14:30 Oxycodone/Aspirin (Percodan) 1 tab Q3H PRN PO PAIN LEVEL 1-5 10/01/16 14:30 Oxycodone/Aspirin (Percodan) 2 tab Q3H PRN PO PAIN LEVEL 6-10 10/01/16 14:30 Ondansetron HCl (Zofran Inj) 4 mg Q6H PRN IV NAUSEA AND/OR VOMITING 10/01/16 14:30 Senna/Docusate Sodium (Senokot-S) 1 tab BID PO 10/01/16 21:00 10/02/16 08:45 Witch Deedee/ Glycerin (Tucks Pads) 1 pad BEDSIDE MEDICATION PRN AK HEMORRHOID/EPISIOTMY PAIN 10/01/16 14:30 10/01/16 17:09 Benzocaine (Dermoplast [place]) 1 spray BEDSIDE MEDICATION PRN TOP HEMORRHOID/EPISIOTMY PAIN 10/01/16 14:30 10/01/16 17:09 Dibucaine (Nupercainal) 1 applic BEDSIDE MEDICATION PRN AK HEMORRHOID/EPISIOTMY PAIN 10/01/16 14:30 Lanolin (Ugi-A-Zjsnul) 1 applic BEDSIDE MEDICATION PRN TOP BEDSIDE FOR CATRACHO TO NIPPLES 10/01/16 14:30 10/01/16 17:09 Measles/Mumps/ Rubella Vaccine Live 0.5 ml 0.5 ml ONCE ONCE SC* 10/03/16 09:00 10/03/16 09:01 Imipenem/ Cilastatin Sodium 1000 mg/Sodium Chloride 250 ml @ 166.667 mls/hr Q6 IVPB 10/01/16 17:00 10/02/16 11:35 Lactated Ringer's (Lr) 1,000 ml @ 125 mls/hr Q8H IV 10/02/16 09:00 10/02/16 08:51 LESLEI QUINTANA MD Oct 02, 2016 15:45
[2016-10-02 16:00] VITALS: BP 106/67; PULSE 78; RESP 20
[2016-10-02 19:50] VITALS: BP 110/68; PULSE 80; RESP 20
[2016-10-03] MEDS: IMIPENEM/CILASTATIN 1,000 MG in SOD CHLORIDE 0.9% 250 ML IVPB SCH ×2 (00:46→06:06)
[2016-10-03] MEDS: LACTATED RINGER'S 1,000 ML IV SCH (00:46)
[2016-10-03 03:30] VITALS: BP 108/70; PULSE 78; RESP 20
[2016-10-03] MEDS: IBUPROFEN 600 MG TAB PO SCH ×4 (05:31→23:39)
[2016-10-03 07:30] VITALS: BP 110/71; PULSE 72; RESP 18
[2016-10-03] MEDS ORDERED: MEASLES,MUMPS,RUBELLA VACCINE INJ SC* ONE (09:00)
[2016-10-03] MEDS: SENNA/DOCUSATE NA (8.6MG/50MG) TAB PO SCH ×2 (09:32→21:00)
--- NOTE | 2016-10-03 09:47 | PD.PPDC ---
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
[2016-10-03] MEDS: IMIPENEM-CILAST 500 MG/NS 100 ML IVPB SCH ×3 (11:45→23:40)
[2016-10-03 17:02] VITALS: BP 106/69; PULSE 86; RESP 19
--- NOTE | 2016-10-03 19:13 | PN ---
DATE: 10/03/2016 INFECTIOUS DISEASE CONSULTATION SUBJECTIVE: No acute changes overnight. The patient is alert, ambulating in the room. Denies pain , discomfort. No fevers. She does have some frequency, but no dysuria, no hematuria. WBC today 9. 6, H and H 10.2 and 30.4, platelets 185, no shift. Urinalysis at admission was positive for leukocy te esterase, WBC and bacteria. A renal ultrasound revealed normal examination of the urinary bladde r and kidneys. ANTIMICROBIALS: She is on Imipenem, day #3. PHYSICAL EXAMINATION: GENERAL: This is a well-developed, well-nourished, middle-aged woman who is alert, in no distress. HEENT: Head atraumatic, normocephalic. Sclerae anicteric. Buccal mucosa pink. NECK: Supple, trachea midline. CHEST: Rise symmetrical. Breath sounds clear. HEART: S1, S2. ABDOMEN: Soft. Bowel tones present. EXTREMITIES: Without cyanosis or edema. ASSESSMENT: 1. Systemic inflammatory response syndrome with fevers and leukocytosis, likely secondary to #2. 2. Urinary tract infection as per urinalysis. 3. Status post spontaneous vaginal delivery. PLAN: The patient is doing better. All cultures have been negative. We will discontinue antibioti cs and observe her. Dictated By: AIRAM SHAH FIELD APPRAISER for JS IRVIN/KEVIN Conf#: [id number] DID#: [id number]
[2016-10-03 20:00] VITALS: BP 110/68; PULSE 69; RESP 18
[2016-10-04 04:00] VITALS: BP 115/75; PULSE 80; RESP 18
[2016-10-04] MEDS: IMIPENEM-CILAST 500 MG/NS 100 ML IVPB SCH (05:33)
[2016-10-04] MEDS: IBUPROFEN 600 MG TAB PO SCH ×2 (05:46→11:49)
[2016-10-04 08:00] VITALS: BP 110/69; PULSE 89; RESP 18
[2016-10-04] MEDS: SENNA/DOCUSATE NA (8.6MG/50MG) TAB PO SCH (09:00)
--- NOTE | 2016-10-04 10:16 | DS ---
Date/Time of Note Date/Time of Note DATE: 10/04/16 TIME: 10:12 Discharge Summary Admission/Discharge Info Admit Date/Time Sep 29, 2016 at 13:15 Discharge Date/Time October 04, 2016 Final Diagnosis Post normal vaginal delivery complicated with febrile condition due to UTI patient treated with Primaxin after being seen by the infectious diseases specialist has been afebrile during the past 72 she is being discharged with a follow-up instruction to be seen in the office in 1 week Patient Condition: Good Consults Infectious disease Procedures Normal spontaneous vaginal delivery Hx of Present Illness at 37 weeks just to suspected with urinary tract infection responded well to the treatment follow-up recommendation for to make appointment to be seen at the clinic in 1 week Hospital Course ID PROGRESS NOTE ABX DAY #4 =>Primaxin #2 s/p Ceftriaxone + Gent IV-> DC 10/01 s/p Amoxicillin 24H INTERVAL SUMMARY * Much improved on Primaxin -- afebrile, WBC normalized, no evidence of sepsis. * Maternal and Placenta cultures both => TISSUE (BIOPSY) CULTURE Preliminary No growth after 1 day * Urine cx was unremarkable growing normal vaginal eden contaminant. URINE CULTURE Final LACTOBACILLUS SPECIES >100,000 CFU/ml * Renal/Bladder US 10/01 showed no abnormalities, basically unremarkable. Normal examination of the kidneys and urinary bladder. * Placenta cx sent by Dr. Quintana today and pending. PHYSICAL EXAMINATION: GENERAL: 32 yo F, HEENT: Unremarkable NECK: Supple, trachea midline. CHEST: Rise symmetrical, HEART: Pulse RRR ABDOMEN: Soft, distended post , : Post vag discharge, wearing pads EXTREMITIES: Warm, dry, no edema ID ASSESSMENT 31 yo F presented 09/29 w/fevers/chills at home on 09/29 admit with: 1. day #10/01, 1 para 1 -> Normal spontaneous vaginal delivery of a baby boy with: 2. SIRS vs sepsis w/fevers, tachycardia HR 100, Leukocytosis WBC 14.3 -> DDx UTI vs Chorioamnionitis 3. Urine Cx = growing normal vaginal eden contaminant. URINE CULTURE Final LACTOBACILLUS SPECIES >100,000 CFU/ml 4. Normal Ultrasound 10/01 examination of the kidneys and urinary bladder. INVASIVES: PIV, ABX ALLERGY: KNDA CURRENT ABX: ABX DAY #4 =>Primaxin #2 s/p Ceftriaxone + Gent IV ID RECOMMENDATIONS 1. Overall she has improved and back to baseline, fevers, leukocytosis resolved , NO EVIDENCE of current sepsis, BCx & urine (-) -- await result of placenta cultures 2. Anticipate DC home OFF PRIMAXIN if placenta cx are negative. * Above recommendations discussed with the patient who expresses understanding/ agreement/gratitude for ID care. . Home Meds Reported Medications Acetaminophen* (Acetaminophen*) 325 Mg Tablet, 325 MG PO Q4H Y for PAIN AND OR ELEVATED TEMP, #30 TAB 09/29/16 Multivit/Min/Fol Ac/Iron/Pren* ( S*) 1 Tab Tab, 1 TAB PO DAILY, TAB 09/26/16 Follow-up Plan history recommended appointment to the office in 1 week LESLIE QUINTANA MD October 04, 2016 10:16
--- NOTE | 2016-10-04 13:03 | PN ---
DATE: 10/04/2016 SUBJECTIVE: No acute changes. The patient is alert, feels good. No frequency, no urgency, no alejandro turia. She has been afebrile. No labs this morning. PHYSICAL EXAMINATION: GENERAL: This is a well-developed, middle-aged woman who is alert, in no distress. HEENT: Head atraumatic, normocephalic. Sclerae anicteric. Buccal mucosa pink. NECK: Supple, trachea midline. CHEST: Rise symmetrical. Breath sounds clear. HEART: S1, S2. ABDOMEN: Soft, bowel sounds present. EXTREMITIES: Without edema or cyanosis. ASSESSMENT: 1. Status post systemic inflammatory response syndrome. 2. Urinary tract infection as per urinalysis with urine culture reveals contaminated specimen, comp leted antibiotics. 3. Status post uneventful vaginal elderly. PLAN: The patient remains stable. Antibiotics were discontinued this a.m. Pending discharge plann ing. Dictated By: AIRAM SHAH REFRIGERATION ENGINE OPERATOR for JS IRVIN/KEVIN Conf#: [id number] DID#: [id number]
== END 2016-10-04 13:05 | disposition home or self-care (01) | DRG 775 ==
LOC: OBT 11:46 → L-D 11:48 → OBT 13:15 → L-D 13:15 → OBG 17:29 → L-D 10-01 01:39 → PP1 10-01 13:59
PROVIDERS: ADMIT Obstetrics & Gynecology; ATTEND Obstetrics & Gynecology
PROC: 10E0XZZ Delivery of Products of Conception, External Approach (ICD-10-PCS; principal; 2016-10-01)
PROC: 0HQ9XZZ Repair Perineum Skin, External Approach (ICD-10-PCS; 2016-10-01)
DX: O23.03 Infections of kidney in pregnancy, third trimester (principal); O70.0 First degree perineal laceration during delivery; Z3A.35 35 weeks gestation of pregnancy; Z37.0 Single live birth; O71.82 Other specified trauma to perineum and vulva
CPT/HCPCS: 36415; 62319; 76775; 76815; 76818; 81001; 81003; 84112; 85025; 85610; 85730; 86592; 86900; 86901; 87040; 87070; 87086; 87340; 88305; 99464; G0463; J0290; J0696; J0743; J1580; J2543; J2590; J3010; J3105; J7030; J7050; J7120